=== PATIENT | female | born 1970 | race Caucasian/White ===

== ENCOUNTER 2018-08-14 01:35 | Inpatient (IN) | payer OTHER ==
[~2018-08-14] VITALS: Ht 154.9 cm; Wt 46.8 kg
[2018-08-14 01:38] VITALS: Ht 154.9 cm; Wt 46.8 kg
[2018-08-14 03:55] LABS: PLATELET COUNT 130 x10^3mcL (130-400); RED CELL DISTRIBUTION WIDTH 14.1 % (11.5-14.5)
[2018-08-14 03:56] LABS: BASOPHIL % 0 % (0-2)
[2018-08-14 03:56] LABS: UA SPECIFIC GRAVITY 1.015 (1.005-1.035); microscopic required? YES; urine erythrocyte TRACE (NEGATIVE)
[2018-08-14 04:01] LABS: CALCIUM 8.1 mg/dL (8.5-10.1); CARBON DIOXIDE 25.7 mmol/L (21-32); CHLORIDE SERUM 100 mmol/L (98-107); CREATININE SERUM 0.7 mg/dL (0.6-1.0); GFR1 > 60 mL/min; GLUCOSE SERUM 117 mg/dL (74-106); POTASSIUM SERUM 3.4 mmol/L (3.5-5.1); SODIUM SERUM 135 mmol/L (136-145)
[2018-08-14 04:12] LABS: ALBUMIN 3.1 g/dL (3.4-5.0); ALKALINE PHOSPHATASE 205 U/L (46-116); ALT/SGPT 734 U/L (14-59); AST/SGOT 661 U/L (15-37); BILIRUBIN TOTAL 0.75 mg/dL (0.20-1.00); FREE T4 1.54 ng/dL (0.76-1.46); TOTAL PROTEIN, SERUM 7.3 g/dL (6.4-8.2)
[2018-08-14 04:26] LABS: AMPHETAMINE QUAL UR NONE DETECTED (See below)
--- NOTE | 2018-08-14 07:18 | NUR ---
REPORT FROM EVENING RN TO ASSUME CARE
--- NOTE | 2018-08-14 07:19 | NUR ---
MEDICATION GIVEN PER ORDER. SEE EMAR FOR DETAILS.
--- NOTE | 2018-08-14 08:21 | NUR ---
PT MEDICATED PER ORDER SEE EMAR FOR DETAILS
--- NOTE | 2018-08-14 08:45 | NUR ---
DR. WASHINGTON AT BEDSIDE FOR LUMBAR PUNCTURE.
[2018-08-14 09:35] LABS: TOTAL PROTEIN CSF 26.6 mg/dL (15-45)
[2018-08-14] MEDS ORDERED: DEPAKOTE500 MG (09:37)
[2018-08-14] MEDS ORDERED: ATIVAN0.5 M1 (09:37)
[2018-08-14 09:48] LABS: APPEARANCE CSF CLEAR; COLOR CSF COLORLESS; VOLUME CSF 1.5 mL
[2018-08-14 09:49] LABS: APPEARANCE CSF CLEAR; COLOR CSF COLORLESS; RBC CSF 182 /cumm (0); VOLUME CSF 1.5 mL; WBC CSF 0 /cumm (0-5); WBC CSF 1 /cumm (0-5)
[2018-08-14 09:50] LABS: RBC CSF 1 /cumm (0)
--- NOTE | 2018-08-14 10:21 | NUR ---
PT SLEEPING ON THE GURNEY IN POSITION OF COMFORT. AT THE BEDSIDE. NO S/S OF DISTRESS. RESP E/U. PT EASILY ARROUSEABLE. CALL LIGHT W/IN REACH. COMFORT MEASURES IMPLEMENTED. WILL CONTINUE TO MONITOR.
--- NOTE | 2018-08-14 10:58 | NUR ---
PT REFUSED BLOOD DRAW BECAUSE SHE FEELS "WEAK". SANDWICH GIVEN TO PT WILL CHECK AGAIN.
[2018-08-14 11:30] LABS: T3 TOTAL 0.93 ng/mL
--- NOTE | 2018-08-14 11:43 | NUR ---
REPORT GIVEN TO RAMONITA ROWAN TO ASSUME CARE.
--- NOTE | 2018-08-14 12:00 | NUR ---
RECEIVED PT FROM ED [facility]IA [facility]. ACCOMPANIED BY . COMPLAINT OF TREMBLING, NECK PAIN, INTERMITTENT NAUSEA, AND FEVER. AWAKE, ALERT, ORIENTED X4. 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 FACE SYMMETRICAL, SPEECH CLEAR. SEIZURE PREC IN PLACE. NO S/S OF ACUTE DISTRESS. VS STABLE. DROPLET PREC IN PLACE, LAB RESULTS PENDING. REPORTS INTERMITTENT SOB WITH EXERTION AND DRY COUGH X 3DAYS. LUNG SOUNDS CTA BILATERALLY ON ROOM AIR. RR EVEN/UNLABORED. CHEST EXPANSION SYMMETRICAL. O2 SAT 98%. NO CHEST PAIN. SINUS TACH ON TELE 30, HR RANGES BETWEEN 90-105. IV WNL TO RAC, 20 GAUGE. NO REDNESS, NO SWELLING, NO INFILTRATION. FLUSHES WELL. BED IN LOW POSITION. CALL LIGHT WITHIN REACH. INSTRUCTED PT TO USE CALL LIGHT TO CALL FOR ASSISTANCE BEFORE AMBULATING AND NEEDED. PT VERBALIZED UNDERSTANDING. FALL PREC IN PLACE, PT IN ROOM CLOSE TO NURSES STATION. WILL CONTINUE TO MONITOR.
--- NOTE | 2018-08-14 12:01 | NUR ---
PT TRANSFERRED TO TELE UNIT ACCOMPAINED BY EMT AND NURSE. DURING TRANSPORT NO S/S OF DISTRESS. RESP E/U. PT COMMUNICATING W/STAFF. EVELYN RN AT BEDSIDE TO ASSUME CARE.
[2018-08-14 12:29] VITALS: BP 97/62
[2018-08-14 14:10] LABS: MAGNESIUM 1.8 mg/dL (1.8-2.4)
[2018-08-14 14:21] LABS: FREE T4 1.39 ng/dL (0.76-1.46); FREE THYROXINE INDEX 3.9 ug/dL (1.4-4.5); T4(THYROXINE) 11.1 ug/dL (4.7-13.3)
--- NOTE | 2018-08-14 18:37 | NUR ---
PT LAYING IN BED. AA/OX4. REPORTS MILD PAIN IN NECK, RATES 1/10, REPORTS IMPROVEMENT. DENIES N/V. DENIES BEVERLY. NO SOB ON ROOM AIR. NO CHEST PAIN. IV WNL, IV FLUIDS FLOWING. DROPLET PREC. IN PLACE. SEIZURE PREC. IN PLACE. BED IN LOW POSITION. CALL LIGHT WITHIN REACH. WILL ENDORSE TO MARNI SHIPMAN.
--- NOTE | 2018-08-14 19:30 | NUR ---
PT IS ALERT AND ORIENTED X 4. PLEASANT AND COOPERATIVE. PT IS QUESTIONING WHY SHE HAS A LOT OF ANTIBIOTICS WHEN ALL THE TEST WAS NEGATIVE. SHE DOES NOT WANT ANY OF THE ANTIBIOTICS ANYMORE AND ITS A LOT OF THEM. DR. CALLEJAS WAS CALLED AND TOLD PT'S CONCERNED AND SHE TALKED TO THE PT. DR. IZQUIERDO CAME AND TOLD HIM ABOUT PT'S CONCERNED AND HE DISCONTINUED ALL OF THEM. MADE COMFORTABLE IN BED. CALL LIGHT WITHIN EASY REACH. STILL HAS IV NS AT 75 ML PER HOUR INFUSING WELL IN THE RIGHT AC.
[2018-08-14 21:11] VITALS: BP 85/54
[2018-08-15] VITALS (9 sets, daily range): BP systolic 82–101; BP diastolic 47–68
--- NOTE | 2018-08-15 05:27 | NUR ---
PT IS RESTING. STILL HAS IV NS AT 75 ML PER HOUR INFUSING WELL. MADE COMFORTABLE IN BED. CALL LIGHT WITHIN EASY REACH.
--- NOTE | 2018-08-15 07:55 | NUR ---
AT 0705 - RECEIVED PATIENT FROM NIGHT NURSE. AWAKE, ALERT AND ORIENTED X 4. AMBULATING IN ROOM. MONITOR SHOWING SINUS RHYTHM; RATE 90.IV INFUSING NS AT 75 ML/HR. PATIENT IS NPO FOR LIVER BIOPSY TODAY. PATIENT HAS SIGNED CONSENT FORM FOR LIVER BX. AT 0745 - SPOKE WITH PATIENT ABOUT PROCEDURE. REASSURANCE PROVIDED.
--- NOTE | 2018-08-15 09:32 | NUR ---
AT 0820 - SPOKE WITH RAMONITA GILLETTE FROM RADIOLOGY. SHE WILL CALL ME WITH A TIME WHEN LIVER BIOPSY WILL BE DONE. PATIENT WOULD LIKE TO RECEIVE ATIVAN PRIOR TO PROCEDURE. AT 0915 - PATIENT FEELING ANXIOUS, SO GIVEN ATIVAN 1 MG PO PER EMAR.
--- NOTE | 2018-08-15 10:34 | NUR ---
ACCORDING TO RADIOLOGY PATIENT WILL BE TAKEN FOR LIVER BX AT 1045. PATIENT RESTING QUIETLY, WITH EYES CLOSED AT THIS TIME.
--- NOTE | 2018-08-15 10:51 | NUR ---
PATIENT TAKEN TO RADIOLOGY FOR LIVER BIOPSY.
--- NOTE | 2018-08-15 11:54 | NUR ---
recieved pt from franci rn. pt's bp at 90/53. pt still lying on her r side. until 1205. and will stay in bed until 1305.
--- NOTE | 2018-08-15 12:16 | NUR ---
PATIENT NOW LYING ON BACK. BAND-AID DRESSING TO LIVER BIOPSY SITE IS DRY AND INTACT.
--- NOTE | 2018-08-15 13:08 | NUR ---
VS REMAIN STABLE. DRESSING TO BX SITE IS DRY. NO BLEEDING NOTED. NO SIGNS OF HEMATOMA. NO C/O PAIN. PATIENT NOW SAT UP IN BED FOR LUNCH. REMAINS AT BEDSIDE.
[2018-08-15 14:10] LABS: BASOPHIL % 0.4 % (0-2); PLATELET COUNT 140 x10^3mcL (130-400)
[2018-08-15 14:18] LABS: RED CELL DISTRIBUTION WIDTH 14.7 % (11.5-14.5)
[2018-08-15 14:29] LABS: ALBUMIN 2.7 g/dL (3.4-5.0); ALKALINE PHOSPHATASE 149 U/L (46-116); ALT/SGPT 616 U/L (14-59); AST/SGOT 222 U/L (15-37); BILIRUBIN DIRECT 0.23 mg/dL (0.0-0.2); BILIRUBIN TOTAL 0.45 mg/dL (0.20-1.00); CALCIUM 7.7 mg/dL (8.5-10.1); CARBON DIOXIDE 24.9 mmol/L (21-32); CHLORIDE SERUM 106 mmol/L (98-107); CREATININE SERUM 0.7 mg/dL (0.6-1.0); GFR1 > 60 mL/min; GLUCOSE SERUM 134 mg/dL (74-106); SODIUM SERUM 139 mmol/L (136-145); TOTAL PROTEIN, SERUM 6.8 g/dL (6.4-8.2)
--- NOTE | 2018-08-15 14:31 | NUR ---
K+ 3.0. COMPLETION MANAGER VITA BORRERO NOTIFIED.
--- NOTE | 2018-08-15 15:07 | NUR ---
RESTING QUITLY. VSS. NO BLEEDING NOTED. IV INFUSING NS AT 75 ML/HR. NO C/O PAIN.
--- NOTE | 2018-08-15 17:00 | NUR ---
SEEN BY DR IZQUIERDO. NO NEW ORDERS.
--- NOTE | 2018-08-15 17:18 | NUR ---
PATIENT RESTING QUIETLY. NO C/O PAIN. SOUND MIXER VITA BORRERO REMINDED OF LOW K+ OF 3.0.
--- NOTE | 2018-08-15 18:35 | NUR ---
GIVEN 40 ME KCL PO FOR K+ OF 3.0. PATIENT EATING DINNER. FAMILY AT BEDSIDE. NO C/O HEADACHE OR NAUSEA. VSS. WILL ENDORSE CARE TO NIGHT NURSE.
--- NOTE | 2018-08-15 19:30 | NUR ---
PT IS ALERT AND ORIENTED X 4. PLEASANT AND COOPERATIVE. DENIES ANY PAIN AT THIS TIME. LUNGS CLEAR ON AUSCULTATIONS BILATERALLY. HAS RIGHT SIDE LIVER BIOPSY. AND NOTED RIGHT SIDE UPPER QUADRANT ABDOMEN BAD-AID. NO BLEEDING AND NO BRUISNG. STILL HAS IV NS AT 75 ML PER HOUR INFUSING WELL IN THE RIGHT AC. PATENT AND INTACT. WILL MONITOR.
--- NOTE | 2018-08-16 05:14 | NUR ---
PT IS RESTING RIGHT NOW. STILL HAS IV NS AT 75 ML PER HOUR INFUSING WELL IN THE RIGHT AC. PATENT AND INTACT. DENIES ANY PAIN, MADE COMFORTABLE IN BED. CALL LIGHT WITHIN EASY REACH. BAND-AID TO THE RIGHT UPPER ABDOMINAL AREA. WILL CONITNUE TO MONITOR.
[2018-08-16 05:48] VITALS: BP 92/56
[2018-08-16 07:07] LABS: BASOPHIL % 0.2 % (0-2); PLATELET COUNT 131 x10^3mcL (130-400); RED CELL DISTRIBUTION WIDTH 14.5 % (11.5-14.5)
[2018-08-16 07:33] LABS: ALKALINE PHOSPHATASE 134 U/L (46-116); ALT/SGPT 525 U/L (14-59); AST/SGOT 156 U/L (15-37); CALCIUM 7.6 mg/dL (8.5-10.1); CARBON DIOXIDE 23.1 mmol/L (21-32); CHLORIDE SERUM 105 mmol/L (98-107); CREATININE SERUM 0.7 mg/dL (0.6-1.0); GFR1 > 60 mL/min; GLUCOSE SERUM 96 mg/dL (74-106); POTASSIUM SERUM 3.5 mmol/L (3.5-5.1); SODIUM SERUM 133 mmol/L (136-145); TOTAL PROTEIN, SERUM 6.4 g/dL (6.4-8.2)
[2018-08-16 07:35] LABS: ALBUMIN 2.6 g/dL (3.4-5.0)
--- NOTE | 2018-08-16 07:45 | NUR ---
RECEIVED PATIENT FROM NIGHT NURSE. AWAKE, ALERT AND ORIENTED. C/O HEADACHE. PATIENT FEELS IT IS DUE TO BEING TAKEN OFF DEPAKOTE. MONITOR SHOWING SINUS RHYTHM; RATE 80'S. IV INFUSION AT 75 ML/HR OF NS.
[2018-08-16 09:00] VITALS: BP 110/69
--- NOTE | 2018-08-16 09:46 | NUR ---
AT 0915 - SEEN BY DR MARES WHO SPOKE WITH PATIENT AT LENGTH. PATIENT EXPRESSED CONCERN THAT HER ANXIETY AND HEADACHES HAVE INCREASED SINCE BEING TAKEN OFF DEPAKOTE. NEW ORDER RECEIVED FOR ATIVAN 0.5 MG DAILY AND Q 4H PRN. DR WROTE A PRESCRIPTION FOR TRAZEDONE AND TOFANIL FOR WHEN THE PATIENT IS DISCHARGED. AT 0935 - GIVEN ATIVAN 0.5 MG PO PER EMAR FOR C/O ANXIETY AND TREMORS.
[2018-08-16 12:28] VITALS: BP 90/52
[2018-08-16] MEDS ORDERED: TRAZODONE50 M1 PO (12:33)
[2018-08-16] MEDS ORDERED: TOF25 PO (12:33)
[2018-08-16 12:54] VITALS: BP 90/52
--- NOTE | 2018-08-16 13:01 | NUR ---
RECEIVED DISCHARGE ORDERS. IV INFUSION DISCONTINUED. PATIENT EATING LUNCH.
--- NOTE | 2018-08-16 14:24 | NUR ---
PRINTED DISCHARGE INSTRUCTIONS GIVEN AND EXPLAINED TO PATIENT. PRESCRIPTION PROVIDED. IV CATHETER REMOVED INTACT. TAKEN OFF CARDIAC MONITORING. PREPARED FOR DISCHARGE.
[2018-08-19 06:26] LABS: CK-BB 0 % (0); CK-MB 0 % (0-3); CK-MM 100 % (97-100); MACRO TYPE 1 0 % (Not Observed); MACRO TYPE 2 0 % (Not Observed)
[2018-08-19 10:05] LABS: LIVER-KIDNEY MICROSOMAL AB 0.6 Units (0.0-20.0); MITOCHONDRIAL ANTIBODY 5.2 Units (0.0-20.0)
== END 2018-08-16 14:40 | disposition home or self-care (01) | DRG 720 ==
LOC: ED 01:35 → DU 10:09
PROVIDERS: Emergency Medicine; Internal Medicine; ADMIT Family Medicine
PROC: 009U3ZX Drainage of Spinal Canal, Percutaneous Approach, Diagnostic (ICD-10-PCS; principal; 2018-08-14)
PROC: 0FB13ZX Excision of Right Lobe Liver, Percutaneous Approach, Diagnostic (ICD-10-PCS; 2018-08-15)
DX: A41.89 Other specified sepsis (principal); K72.00 Acute and subacute hepatic failure without coma; B34.9 Viral infection, unspecified; E44.0 Moderate protein-calorie malnutrition; F03.90 Unspecified dementia, unspecified severity, without behavioral disturbance, psychotic disturbance, mood disturbance, and anxiety; E87.1 Hypo-osmolality and hyponatremia; G43.909 Migraine, unspecified, not intractable, without status migrainosus; B19.9 Unspecified viral hepatitis without hepatic coma; E87.6 Hypokalemia; F41.9 Anxiety disorder, unspecified; R74.0 Nonspecific elevation of levels of transaminase and lactic acid dehydrogenase [LDH]; Z80.3 Family history of malignant neoplasm of breast; E86.1 Hypovolemia; Z88.2 Allergy status to sulfonamides
CPT/HCPCS: 83516; 83880; 84439; 86308; 86376; 86788; 86789; 87804; C1894; J0133; J0696; J1100; J2001; J2060; J3010; J3370; J7030; Q0092

== ENCOUNTER 2018-08-22 15:16 | Emergency (ER) | payer OTHER | END 2018-08-22 18:05 | disposition home or self-care (01) | LOC: ED 15:16 ==

== ENCOUNTER 2018-10-19 14:39 | Emergency (ER) | payer OTHER ==
[~2018-10-19] VITALS: Ht 157.5 cm; Wt 47.2 kg
[~2018-10-19 14:39] MED LIST: ATIVAN0.5 M1; DEPAKOTE500 MG; TOF25 PO; TRAZODONE50 M1 PO
[2018-10-19 14:45] VITALS: Ht 157.5 cm; Wt 47.2 kg
[2018-10-19 17:07] LABS: CALCIUM 8.4 mg/dL (8.5-10.1); CARBON DIOXIDE 27.4 mmol/L (21-32); CHLORIDE SERUM 102 mmol/L (98-107); CREATININE SERUM 0.6 mg/dL (0.6-1.0); GFR1 > 60 mL/min; GLUCOSE SERUM 106 mg/dL (74-106); POTASSIUM SERUM 3.9 mmol/L (3.5-5.1); SODIUM SERUM 137 mmol/L (136-145)
[2018-10-19 17:11] LABS: ALBUMIN 3.6 g/dL (3.4-5.0); ALKALINE PHOSPHATASE 58 U/L (46-116); ALT/SGPT 32 U/L (14-59); AST/SGOT 25 U/L (15-37); BILIRUBIN TOTAL 0.5 mg/dL (0.20-1.00); CHOLESTEROL 187 mg/dL (<200); PHOSPHOROUS 2.9 mg/dL (2.5-4.9); TOTAL PROTEIN, SERUM 7.9 g/dL (6.4-8.2); URIC ACID 2.6 mg/dL (2.6-6.0)
[2018-10-19 17:13] LABS: HDL CHOLESTEROL 96 mg/dL (40-60)
[2018-10-19 17:16] LABS: BASOPHIL % 0.3 % (0-2); PLATELET COUNT 234 x10^3mcL (130-400)
[2018-10-19 17:24] LABS: RED CELL DISTRIBUTION WIDTH 14.8 % (11.5-14.5)
[2018-10-19 17:50] VITALS: BP 101/74
== END 2018-10-19 17:50 | disposition home or self-care (01) ==
LOC: ED 14:39
PROVIDERS: Emergency Medicine
DX: R00.2 Palpitations (principal); R06.02 Shortness of breath; R51 Headache; R07.89 Other chest pain; R23.2 Flushing; F41.9 Anxiety disorder, unspecified; Z88.2 Allergy status to sulfonamides
CPT/HCPCS: 36415; Q0092

== ENCOUNTER 2019-02-16 04:14 | Emergency (ER) | payer OTHER ==
[~2019-02-16] VITALS: Ht 154.9 cm; Wt 53.1 kg
[2019-02-16 04:17] VITALS: Ht 154.9 cm; Wt 53.1 kg
[2019-02-16 05:34] LABS: BASOPHIL % 0.5 % (0-2); PLATELET COUNT 199 x10^3mcL (130-400); RED CELL DISTRIBUTION WIDTH 14.7 % (11.5-14.5)
[2019-02-16 05:40] LABS: CALCIUM 8.9 mg/dL (8.5-10.1); CARBON DIOXIDE 26.5 mmol/L (21-32); CHLORIDE SERUM 104 mmol/L (98-107); CREATININE SERUM 0.8 mg/dL (0.6-1.0); GFR1 > 60 mL/min; GLUCOSE SERUM 107 mg/dL (74-106); POTASSIUM SERUM 4.1 mmol/L (3.5-5.1); SODIUM SERUM 139 mmol/L (136-145)
[2019-02-16 05:44] LABS: ALBUMIN 3.5 g/dL (3.4-5.0); ALKALINE PHOSPHATASE 62 U/L (46-116); ALT/SGPT 28 U/L (14-59); AST/SGOT 18 U/L (15-37); BILIRUBIN TOTAL 0.22 mg/dL (0.20-1.00); LIPASE 158 IU/L (73-393); TOTAL PROTEIN, SERUM 7.9 g/dL (6.4-8.2)
[2019-02-16 06:27] VITALS: BP 117/69
== END 2019-02-16 06:27 | disposition home or self-care (01) ==
LOC: ED 04:14
PROVIDERS: Emergency Medicine
DX: R00.2 Palpitations (principal); F41.9 Anxiety disorder, unspecified; Z88.2 Allergy status to sulfonamides; Z88.8 Allergy status to other drugs, medicaments and biological substances
CPT/HCPCS: J1200; J2060; J7030; Q0092

== ENCOUNTER 2020-07-12 04:46 | Observation (INO) | payer OTHER ==
[~2020-07-12] VITALS: Ht 154.9 cm; Wt 47.2 kg
[~2020-07-12 04:46] MED LIST changes: -ATIVAN0.5 M1; +ATIVAN0.5 M1 IV
[2020-07-12 05:06] VITALS: Ht 154.9 cm; Wt 47.2 kg
--- NOTE | 2020-07-12 05:07 | NUR ---
PT PRESENTS TO ED WITH C/C OF CHESTPAIN AND NAUSEA X4HRS SAND BUFFER TO ED. PT ALSO HAS HX OF DEMENTIA. AT BEDSIDE. DX OF FRONTAL LOBE DEMENTIA [id number] AGO. PER , PT SEES NEUROLOGIST REGULARLY. PT IS COMPLAINING OF HEADACHE, NAUSEA, DENIES VOMITTING, DENIES DIRRHEA, DENIES CONSTIPATION. COMPLAINING OF 8/10 CHESTPAIN WHILE POINTING TO EPIGASTRIC REGION. PT IS NOTED TO APPEAR ANXIOUS, TEARING, HOLDING 'S HAND. PT REPORTS TAKING XANAX AT HOME, TAKEN LAST NIGHT 07/10/2020. PT IS AWAKE, ANXIOUS, DR BAUTISTA AT BEDSIDE FOR MSE AT THIS TIME.
[2020-07-12 05:49] LABS: PLATELET COUNT 216 x10^3mcL (130-400); RED CELL DISTRIBUTION WIDTH 15.9 % (11.5-14.5)
[2020-07-12 05:50] LABS: BASOPHIL % 0.4 % (0-2)
[2020-07-12 05:52] LABS: ALBUMIN 3.7 g/dL (3.4-5.0); CALCIUM 8.8 mg/dL (8.5-10.1); CHLORIDE SERUM 101 mmol/L (98-107); CREATININE SERUM 0.8 mg/dL (0.6-1.0); GFR1 > 60 mL/min; GLUCOSE SERUM 120 mg/dL (74-106); POTASSIUM SERUM 3.3 mmol/L (3.5-5.1); SODIUM SERUM 136 mmol/L (136-145)
--- NOTE | 2020-07-12 05:54 | NUR ---
PT MEDICATED PER MD ORDER. PT VERBALIZED UNDERSTANDING OF MEDICATIONS PRIOR TO ADMINISTRATION. TEREZA AT BEDSIDE AT THIS TIME. PT APPEARS ANXIOUS. MD BAUTISTA AWARE OF PT ANXIETY AT THIS TIME. CALL LIGHT IN REACH. XRAY AT BEDSIDE AT THIS TIME.
--- NOTE | 2020-07-12 06:00 | NUR ---
SECOND EKG IN PROGRESS AT THIS TIME.
[2020-07-12 06:03] LABS: ALKALINE PHOSPHATASE 50 U/L (46-116); ALT/SGPT 25 U/L (14-59); AST/SGOT 16 U/L (15-37); BILIRUBIN TOTAL 0.72 mg/dL (0.20-1.00); CARBON DIOXIDE 25.1 mmol/L (21-32)
--- NOTE | 2020-07-12 06:12 | NUR ---
DR. MENDOZA AT BEDSIDE TO SPEAK WITH PATIENT REGARDING PATIENT CARE.
--- NOTE | 2020-07-12 07:13 | NUR ---
REPORT GIVEN TO HOLLIE SHIPMAN TO ASSUME CARE OF PT.
[2020-07-12] MEDS ORDERED: XANAX0.25 MG PO (07:14)
[2020-07-12] MEDS ORDERED: CLONAZEPAM0.25 MG PO (07:15)
--- NOTE | 2020-07-12 07:19 | NUR ---
REPORT GIVEN TO MARK SHIPMAN TO ASSUME CARE OF PT.
--- NOTE | 2020-07-12 07:23 | NUR ---
PT A&OX4, SHE REPORTED ANXIETY HAS DECREASED, CALM AND COOPERATIVE, STATES "BEING SLEEPY BUT CANT SLEEP BECAUSE PALPITATIONS KEEP HER UP".
--- NOTE | 2020-07-12 08:35 | NUR ---
PT HAD EPISODE OF TACHYCARDIA AND A FIB WHILE AT BEDSIDE PROVIDING PATIENT CARE. PT STATES BEING ABLE TO FEEL EPISODES BEFORE THEY OCCUR.
--- NOTE | 2020-07-12 10:06 | NUR ---
SENIOR HRIS ANALYST DR ARTEAGA AT THE BEDSIDE FOR MSE TO PT.
--- NOTE | 2020-07-12 12:07 | NUR ---
PT GIVEN LUNCH TRAY.
--- NOTE | 2020-07-12 12:44 | NUR ---
PT ATE 50% OF LUNCH 30ML APPLE JUICE. PT IS AAOX4, NO DISTRESS NOTED, RESP E/U. PT APPEARS CALM AND COOOPERATIVE. PT IN POSITION OF COMFORT IN ER [facility]. PT AWARE SHE IS WAITING A BED UPSTAIRS AND WILL REMAIN IN THE ER UNTIL A BED OPENS. PT ON FULL CM, NSR NOTED AT THIS TIME. WILL CONT TO MONITOR.
--- NOTE | 2020-07-12 14:00 | NUR ---
PT NOTED SLEEPING, EASILY AROUSABLE, NO DISTRESS, SYMMETRICAL CHEST RISE AND FALL. PT ON FULL CM, IN VIEW OF THE NURSE STATION. PT AWAITING BED. WILL CONT TO MONITOR
--- NOTE | 2020-07-12 15:15 | NUR ---
PT ASKING FOR WATER, OK PER MD, PT GIVEN ICE WATER. PT IN NO DISTRESS, RESP E/U. PT IS AAOX4, APPEARS CALM AND IS COOPERATIVE. PT IN FULL CM, NSR NOTED A THIS TIME. WILL CONT TO MONITOR. PT IN POSITION OF COMFORT IN ER [facility].
[2020-07-12 15:28] LABS: FREE T4 1.27 ng/dL (0.76-1.46)
--- NOTE | 2020-07-12 15:46 | NUR ---
PT ASSISTED IN USING BEDSIDE CAMMODE. PT AMBULATED WITH A STEADY GAIT.
--- NOTE | 2020-07-12 17:00 | NUR ---
PT STATING SHE HAS SOME PAIN IN HER EPIGASTRIC REGION AND A "LITTLE NAUSEA." NO VOMITING NOTED. PT MEDICATED PER MD PRN ORDERS, SEE EMAR. PT VERBALIZED UNDERSTANDING OF MEDICATION TEACHING. PT ON FULL CM, NSR NOTED, WILL CONT TO MONITOR. PT AWAITING BED.
--- NOTE | 2020-07-12 18:30 | NUR ---
PT IN POSITION OF COMFORT, RESP E/U, A&OX4, NO DISTRESS AT THIS TIME. WILL CONT TO MONITOR.
--- NOTE | 2020-07-12 19:24 | NUR ---
REPORT GIVEN TO SANNA SHIPMAN TO ASSUME PT CARE.
--- NOTE | 2020-07-12 21:49 | NUR ---
CALLED PHARMACY FOR PT'S MEDS, NOT IN [facility].
--- NOTE | 2020-07-12 23:42 | NUR ---
REPORT GIVEN TO KARTIK SHIPMAN TO ASSUME CARE OF PT.
--- NOTE | 2020-07-13 00:32 | NUR ---
REC'D PT FROM ED VIA [facility] ACCOMPANIED BY RN. PT ADM WITH CC OF CP. CURRENTLY DENIES CP. ONLY REPORTS DIZZINESS UPON AMBULATION AND NAUSEA. PT DENIED ANY ANTIEMETIC. AAOX4, SPEECH CLEAR, FOLLOWS COMMANDS. HX DEMENTIA- STATES HER DEMENTIA DOES NOT AFFECT MEMORY YET. IT AFFECTS HER MOOD AND BEHAVIOR. REPORT "NOT TOO MUCH" ANXIETY. "ONLY A LITTLE." DENIES RESP DISTRESS OR SOB. BREATHING EVEN/UNLABORED ON 2L NC, SPO2 99%. STATES SHE HAS THE O2 ON BC SHE HAS PANIC ATTACKS. ABD SOFT/ROUND. DENIES ABD PAIN, TENDERNESS, OR N/V. VOIDING FREELY. GEN WEAKNESS. AMB WITH ASSIST. USES A CANE AT HOME. IV TO AND [facility], SITES WNL. ORIENTED TO DEVICES AND SURROUNDINGS. CALL LIGHT WITHIN REACH, BED AT LOWEST POSITION. REPORT GIVEN TO KARTIK SHIPMAN.
[2020-07-13 00:52] VITALS: BP 99/59
--- NOTE | 2020-07-13 01:20 | NUR ---
In bed. Resting at this time. No SOB noted. Denies pain. Denies n/v. Call light within reach.
--- NOTE | 2020-07-13 04:06 | NUR ---
Resting comfortably in bed. Episode of anxiety. Ativan given as ordered with help. In no apparent distress.
[2020-07-13 05:15] VITALS: BP 96/57
[2020-07-13 07:35] LABS: BASOPHIL % 0.2 % (0-2); PLATELET COUNT 192 x10^3mcL (130-400)
[2020-07-13 07:40] VITALS: BP 112/81
[2020-07-13 07:50] LABS: RED CELL DISTRIBUTION WIDTH 14.9 % (11.5-14.5)
--- NOTE | 2020-07-13 10:16 | NUR ---
PT TO HAVE ECHO DONE TODAY. TRIED CALLING TWICE BUT THERE WAS NO ANSWER. UNKNOWN WHEN ECHO WILL BE DONE. CD TECHNICIAN WAS ASKING, WAS PATIENT.
[2020-07-13 11:43] VITALS: BP 97/58
[2020-07-13] MEDS ORDERED: DIG125 PO (11:47)
[2020-07-13] MEDS ORDERED: COR6 PO (11:47)
[2020-07-13] MEDS ORDERED: ECO81 PO (11:47)
[2020-07-13 11:56] VITALS: BP 112/81
--- NOTE | 2020-07-13 14:14 | NUR ---
WENT OVER DISCHARGE PAPERWORK WITH PATIENT. ANSWERED ALL QUESTIONS. PRESCRIPTIONS CALLED IN TO PHARMACY BY MD. PATIENT AWARE. REMOVED TELEMETRY AND BROUGHT TO TELE ROOM. REMOVED BOTH IVS INTACT, NO PROBLEMS. REMOVED ID BAND AND PLACED IN SHREDDER. PATIENT WILL GET DRESSED AND CALL FOR HER RIDE TO COME PICK HER UP.
[2020-07-13 15:41] VITALS: BP 109/65
== END 2020-07-13 15:40 | disposition home or self-care (01) ==
LOC: ED 04:46 → DU 06:25
PROVIDERS: Emergency Medicine; Internal Medicine Cardiovascular Disease; ADMIT Internal Medicine; ATTEND Internal Medicine
DX: R07.89 Other chest pain (principal); F41.9 Anxiety disorder, unspecified; F32.9 Major depressive disorder, single episode, unspecified; N63.14 Unspecified lump in the right breast, lower inner quadrant; Z20.828 Contact with and (suspected) exposure to other viral communicable diseases
CPT/HCPCS: 84439; 85378; G0378; J2060; J2405; Q9967